=== PATIENT | female | born 1980 | race Caucasian/White ===

== ENCOUNTER 2017-08-23 16:07 | Emergency (ER) | payer OTHER ==
[~2017-08-23] VITALS: Ht 170.1 cm; Wt 104.3 kg
[~2017-08-23 16:07] MED LIST: ALDACTONE25 MG; ALDACTONE25 MG PO; ANAPROX DS550 MG PO; AUGMENTIN 875 M1 TAB PO; CARDURA1 M1 PO; CHLORTHALIDONE25 MG PO; CLARITIN10 MG PO; COREG25 MG PO; COREG3.125 MG PO; COZAAR100 MG PO; COZAAR50 MG PO; ECOTRIN325 MG PO; FENOFIBRATE160 MG PO; HYDROCODONE BIT1 T11 PO; K + POTASSIUM20 MEQ PO; K-Dur 20MEQ20 MEQ PO; LABETALOL200 MG; LASIX20 MG PO; LASIX40 MG PO; LEVAQUIN250 MG PO; LISINOPRIL10 MG; LOPRESSOR50 MG PO; LOSARTAN POTASS50 M1 PO; MEDROL DOSEPAK4 MG PO; MICRO-K10 MEQ PO; NORVASC10 MG PO; TYLENOL325 M1; VITAMIN D1000 IU PO; XANAX0.5 MG PO; ZANTAC150 MG PO; ZOFRAN ODT4 MG SL; ZOFRAN4 MG PO
[2017-08-23] MEDS ORDERED: TAMOXIFEN CITRA20 MG PO (16:16)
== END 2017-08-23 19:45 | disposition home or self-care (01) ==
LOC: ED 16:07
DX: S86.812A Strain of other muscle(s) and tendon(s) at lower leg level, left leg, initial encounter (principal); M25.562 Pain in left knee; Z79.899 Other long term (current) drug therapy; W17.89XA Other fall from one level to another, initial encounter; Y93.89 Activity, other specified; Y92.89 Other specified places as the place of occurrence of the external cause; Y99.8 Other external cause status

== ENCOUNTER 2018-10-26 13:46 | Emergency (ER) | payer OTHER ==
[~2018-10-26] VITALS: Ht 170.1 cm; Wt 94.8 kg
[~2018-10-26 13:46] MED LIST changes: +TAMOXIFEN CITRA20 MG PO
[2018-10-26] MEDS ORDERED: MEDROL DOSEPAK4 MG PO (14:16)
[2018-10-26] MEDS ORDERED: AMOXICILLIN500 M2 PO (14:16)
== END 2018-10-26 14:38 | disposition home or self-care (01) ==
LOC: ED 13:46
DX: K08.9 Disorder of teeth and supporting structures, unspecified (principal); Z79.899 Other long term (current) drug therapy

== ENCOUNTER → 2021-09-20 | Outpatient (CLI) | payer OTHER ==
[~2021-09-20] MED LIST changes: +AMOXICILLIN500 M2 PO
[2021-09-20 11:56] LABS: ALBUMIN 2.8 gm/dl (3.1-4.5); BUN 9 mg/dl (7-24); CHLORIDE 104 mmol/L (98-107); CREATININE 0.88 mg/dL (0.55-1.02); SGOT/AST 85 IU/L (3-35); SGPT/ALT 52 U/L (12-78); SODIUM 140 mmol/L (136-145); TOTAL PROTEIN 7.1 gm/dL (6.4-8.2)
[2021-09-20 11:57] LABS: ALKALINE PHOSPHATASE 70 U/L (45-117)
== END | disposition home or self-care (01) ==
LOC: LAB 11:23
PROVIDERS: ATTEND Nurse Practitioner Adult Health
DX: C50.411 Malignant neoplasm of upper-outer quadrant of right female breast (principal); C79.51 Secondary malignant neoplasm of bone; I74.4 Embolism and thrombosis of arteries of extremities, unspecified; E11.9 Type 2 diabetes mellitus without complications